=== PATIENT | male | born 1960 | race Asian ===

== ENCOUNTER 2022-11-27 04:20 | Day surgery (SDC) | payer BC, OTHER ==
[2022-11-25 16:12] VITALS: BMI 27.1
[2022-11-27 10:32] VITALS: PULSE 67; RESP 18; TEMP 98
[2022-11-27 10:34] VITALS: BP 141/67
== END 2022-11-27 10:20 | disposition home or self-care (01) ==
LOC: JASU-ENDO 04:20
PROVIDERS: ATTEND Internal Medicine Gastroenterology
PROC: 0D5M8ZZ Destruction of Descending Colon, Via Natural or Artificial Opening Endoscopic (ICD-10-PCS; principal; 2022-11-27 09:00)
DX: Z12.11 Encounter for screening for malignant neoplasm of colon (principal); D12.4 Benign neoplasm of descending colon
CPT/HCPCS: 82962; 88305-TC